=== PATIENT | female | born 1990 | race Caucasian/White ===

== ENCOUNTER 2022-01-15 19:39 | Observation (INO) | payer MEDICAID, SELFPAY ==
[2022-01-15 19:40] VITALS: BP 143/103; PULSE 112; RESP 18; TEMP 36.3; O2SAT 97; BMI 39.5
--- NOTE | 2022-01-15 19:54 | EX.ED.SAOD ---
HPI History of Present Illness Chief Complaint: Substance Abuse Narrative Narrative: This is a 31-year-old female presenting for alcohol detox. She states he drinks about 2 quarts a day of alcohol and then has multiple of the small bottles of fireball throughout the day. She states she last drank before she came in. She states she usually drinks all night till she gets 6 and goes up in the morning. She also states she uses meth but has not used this in about a week. She injects this. She denies other drug use. She states that her mother about 2 weeks ago and she wants to try to get clean. PFSH COUNTS INCLUDE 234 BEDS AT THE [facility] Home Medications NK 01/15/22 [History Last Taken Unknown] Allergy/AdvReac Type Severity Reaction Status Date / Time ketorolac [From Toradol] AdvReac Other Verified 01/15/22 19:40 Social History Smoking Status: Current every day smoker tobacco type: cigarettes ROS ROS ED Constitutional Constitutional ED: Denies chills or fever(s) Eyes Eyes: Denies blurry vision or change in vision ENT ENT ED: Denies rhinorrhea or sore throat Cardiovascular Cardiovascular: Denies chest pain or palpitations Respiratory/Chest Respiratory/Chest: Denies cough or dyspnea Gastrointestinal Gastrointestinal: Denies abdominal pain, constipation, diarrhea or melena Genitourinary Genitourinary ED: Denies dysuria Musculoskeletal Musculoskeletal: Denies arthralgias Integumentary Denies abscess Neurologic Neurologic: Denies headache(s) or paresthesias Psychiatric Psychiatric: Denies anxiety or depression EXAM Physical Exam Const Vital Signs: 01/15/22 19:40 Temperature 97.3 F L Temperature Source Temporal Pulse Rate 112 H Respiratory Rate 18 Blood Pressure 143/103 H Blood Pressure Mean 116 Pulse Ox 97 Oxygen Delivery Method Room Air Positive obese General Appearance ED: NAD; Negative for pallor Nutritional Appearance: obese HEENT Reports moist mucous membranes Eyes PERRL and EOMs intact bilaterally General Eye ED: Negative for pale conjunctiva or scleral icterus Resp normal respiratory effort and clear to auscultation bilaterally Auscultation: Negative for rales, rhonchi or wheezes Cardio regular rhythm Rate: tachycardic GI soft to palpation Neuro oriented x3 and CN's II-XII intact bilaterally Sensorium / Orientation: alert Speech: speech normal Psych mental status grossly normal Skin General Skin Exam: Negative for jaundice or pallor MDM MDM MDM Narrative Medical decision making narrative: Patient presenting for EtOH detox. She states she does do meth however she has not done this in a week. She understands it we do not detox from methamphetamine. Blood work is obtained and her CBC is unremarkable. CMP shows mild elevation in her AST, ALT, alkaline phosphatase. Bilirubin is normal. EtOH 215. hCG negative. Urine drug screen is negative. Patient is not have any withdrawal symptoms currently. She did not need to be medicated while in the ER. I spoke with hospitalist for admission. Impression: 1. EtOH abuse 2. Presentation for EtOH detox Lab Data Labs: Laboratory Results - last 24 hr 01/15/22 01/15/22 01/15/22 19:59 19:59 19:59 WBC 10.5 RBC 5.25 Hgb 14.2 Hct 43.4 MCV 82.7 MCH 27.0 MCHC 32.7 RDW Std Deviation 45.5 H RDW Coeff of Otis 15.1 H Plt Count 435 MPV 10.1 Immature Gran % (Auto) 0.300 Neut % (Auto) 49.3 Lymph % (Auto) 38.7 [place] % (Auto) 8.5 Eos % (Auto) 2.3 Baso % (Auto) 0.9 Absolute Neuts (auto) 5.2 Absolute Lymphs (auto) 4.05 Nucleated RBC % 0 Sodium 141 Potassium 3.7 Chloride 113 H Carbon Dioxide 20.0 L Anion Gap 8 BUN 8 Creatinine 0.95 Estim Creat Clear Calc 85.76 Est GFR (MDRD) Af Amer 88 Est GFR (MDRD) Non-Af 72 BUN/Creatinine Ratio 8.4 L Glucose 119 H Calcium 8.5 Total Bilirubin 0.20 AST 72 H ALT 64 H Alkaline Phosphatase 162 H Total Protein 7.5 Albumin 3.2 Globulin 4.3 H Albumin/Globulin Ratio 0.7 L Serum , Qual Urine Opiates Screen Urine Methadone Screen Ur Barbiturates Screen Ur Phencyclidine Scrn Ur Amphetamines Screen MDMA (Ecstasy) Screen U Benzodiazepines Scrn Urine Cocaine Screen U Cannabinoids Screen Ur Drug Screen Comment Ethyl Alcohol 215.0 01/15/22 01/15/22 19:59 19:59 WBC RBC Hgb Hct MCV MCH MCHC RDW Std Deviation RDW Coeff of Otis Plt Count MPV Immature Gran % (Auto) Neut % (Auto) Lymph % (Auto) [place] % (Auto) Eos % (Auto) Baso % (Auto) Absolute Neuts (auto) Absolute Lymphs (auto) Nucleated RBC % Sodium Potassium Chloride Carbon Dioxide Anion Gap BUN Creatinine Estim Creat Clear Calc Est GFR (MDRD) Af Amer Est GFR (MDRD) Non-Af BUN/Creatinine Ratio Glucose Calcium Total Bilirubin AST ALT Alkaline Phosphatase Total Protein Albumin Globulin Albumin/Globulin Ratio Serum , Qual NEGATIVE Urine Opiates Screen NEGATIVE Urine Methadone Screen NEGATIVE Ur Barbiturates Screen NEGATIVE Ur Phencyclidine Scrn NEGATIVE Ur Amphetamines Screen NEGATIVE MDMA (Ecstasy) Screen NEGATIVE U Benzodiazepines Scrn NEGATIVE Urine Cocaine Screen NEGATIVE U Cannabinoids Screen NEGATIVE Ur Drug Screen Comment Ethyl Alcohol Discharge Plan Triage Chief Complaint: Substance Abuse ED Provider: Ronni Aguayo Dx/Rx/DC Orders Prescriptions: No Action NK Referrals: NOT,DEFINED [NON-STAFF] -
[2022-01-15 20:07] LABS: Absolute Lymphocyte Count 4.05 X10^3/uL (0.83-4.51); Absolute Neutrophil Count 5.2 X10^3/uL (2.0-7.7); Basophil# 0.09 X10^3/uL; Basophil% 0.9 % (0-1); Eosinophil# 0.24 X10^3/uL; Eosinophils% 2.3 % (0-5); Hematocrit 43.4 % (37-47); Hemoglobin 14.2 g/dL (12.0-15.0); Lymphocyte # 4.05 X10^3/ul (0.83-4.51); Lymphocyte % 38.7 % (19-41); Mean Corp Hgb Conc 32.7 g/dL (32-36); Mean Corpuscular Volume 82.7 fL (81-99); Mean Platelet Vol. 10.1 fl (6.2-12.0); Monocyte# 0.89 X10^3/uL; Monocyte% 8.5 % (0-10); NRBC Flagged by Analyzer 0 % (0-5); Neutrophil # 5.17 X10^3/uL (2.7-7.7); Neutrophil % 49.3 % (47-70); Platelet Count 435 K/mm3 (150-450); RBC Distribution Width CV 15.1 % (11.6-14.6); RBC Distribution Width SD 45.5 fl (35.1-43.9); Red Blood Count 5.25 M/mm3 (4.2-5.4); White Blood Count 10.5 K/mm3 (4.4-11.0)
[2022-01-15 20:35] LABS: Internal QC Validated? YES +Cl - CLEAR BKGD; Pregnancy, Serum, hCG Quali. NEGATIVE Negative
[2022-01-15 20:59] LABS: Amphetamine Urine VISTA NEGATIVE (<1000 ng/mL); Barbiturate Urine VISTA NEGATIVE (< 200 ng/mL); Benzodiazepine Urine VISTA NEGATIVE (< 200 ng/mL); Cocaine Urine VISTA NEGATIVE (< 300 ng/mL); Ecstacy Urine VISTA NEGATIVE (< 500 ng/mL); Methadone Urine VISTA NEGATIVE (< 300 ng/mL); PCP Urine VISTA NEGATIVE (< 25 ng/mL); THC Urine VISTA NEGATIVE (< 50 ng/mL); Vista UDS pH Range 5
[2022-01-15 21:04] LABS: ALB/GLOB Ratio 0.7 RATIO (0.9-2.4); AST(SGOT) 72 U/L (15-37); Alanine Aminotransfer ALT/SGPT 64 U/L (13-56); Albumin, Serum 3.2 g/dL (3.2-5.0); Alkaline Phosphatase 162 U/L (45-117); Anion Gap 8 (5-15); BUN 8 mg/dL (7-18); BUN/Creat Ratio 8.4 RATIO (10-20); Calcium,Total 8.5 mg/dL (8.5-10.1); Chloride 113 mmol/L (98-107); Creatinine, Serum 0.95 mg/dL (0.55-1.02); EST Glomerular Filtration Rate 72 mL/min (>60); Est Glom Filt Rate - Afr Amer 88 mL/min (>60); Estimated Creatinine Clearance 85.76 ml/min; Globulin 4.3 g/dL (2.2-4.2); Glucose 119 mg/dL (74-106); Potassium 3.7 mmol/L (3.5-5.1); Protein, Total 7.5 g/dL (6.4-8.2); Sodium Level 141 mmol/L (136-145)
[2022-01-15 21:08] VITALS: BP 144/97; PULSE 115; RESP 17; TEMP 36.3; O2SAT 98
[2022-01-15 21:13] VITALS: BP 155/79; PULSE 69; RESP 15; O2SAT 99
--- NOTE | 2022-01-15 21:30 | PCM.HP.STD ---
HPI - General General Date of Admission: 01/15/22 Date of Service: 01/15/22 Chief Complaint: Requesting treatment for alcohol HPI Narrative Patient Desean MCKEON, is a 31 F who presents seeking treatment for alcohol withdrawal. Drink was around 2100 today. Patient typically drinks around 2 quarts of moonshine and 10 bottles of 100 mL of fireball daily. Occasionally uses methamphetamines but has not used it for about a week. Currently she is having no symptoms just feeling anxious. She is requesting treatment for alcohol withdrawal and presented to this program voluntarily. ON LICENSE OF [facility] Medical History (Updated 01/15/22 @ 21:[address] Suresh Johnston DO) First degree AV block Home Medications NK 01/15/22 [History Last Taken Unknown] Allergy/AdvReac Type Severity Reaction Status Date / Time ketorolac [From Toradol] AdvReac Other Verified 01/15/22 19:40 Social History (Updated 01/15/22 @ 21:[address] Suresh Johnston DO) Smoking Status: Light Smoker (<10/day) alcohol intake: current substance use type: methamphetamine ROS ROS Narrative All review of systems were negative except as mentioned above in the history of present illness and the other review of systems. Vital Signs Vital Signs Vital Signs: 01/15/22 19:40 01/15/22 21:08 01/15/22 21:13 Temperature 36.3 C L 36.3 C L Temperature Source Temporal Temporal Pulse Rate 112 H 115 H 69 Respiratory Rate 18 17 15 Blood Pressure 143/103 H 144/97 H 155/79 H Blood Pressure Mean 116 112 104 Pulse Ox 97 98 99 Oxygen Delivery Method Room Air Room Air Room Air Weight Weight: 117.934 kg Body Mass Index (BMI) 39.5 Physical Exam Const alert and no apparent distress HEENT normocephalic and head/scalp atraumatic Neck no lymphadenopathy Resp normal respiratory effort, no retractions, no use of accessory muscles and clear to auscultation bilaterally Cardio regular rate, regular rhythm, S1 normal heart sound, S2 normal heart sound and no murmurs GI normal to inspection, nondistended, normoactive bowel sounds, soft to palpation, non-tender and non-distended Extremity normal to inspection Psych Mood & Affect: anxious Results Lab / Micro Data Result Diagrams: 01/15/22 19:59 01/15/22 19:59 Labs: Laboratory Results - last 24 hr 01/15/22 19:59: WBC 10.5, RBC 5.25, Hgb 14.2, Hct 43.4, MCV 82.7, MCH 27.0, MCHC 32.7, RDW Std Deviation 45.5 H, RDW Coeff of Otis 15.1 H, Plt Count 435, MPV 10.1, Immature Gran % (Auto) 0.300, Neut % (Auto) 49.3, Lymph % (Auto) 38.7, [place] % (Auto) 8.5, Eos % (Auto) 2.3, Baso % (Auto) 0.9, Absolute Neuts (auto) 5.2, Absolute Lymphs (auto) 4.05, Nucleated RBC % 0 01/15/22 19:59: Sodium 141, Potassium 3.7, Chloride 113 H, Carbon Dioxide 20.0 L, Anion Gap 8, BUN 8, Creatinine 0.95, Estim Creat Clear Calc 85.76, Est GFR (MDRD) Af Amer 88, Est GFR (MDRD) Non-Af 72, BUN/Creatinine Ratio 8.4 L, Glucose 119 H, Calcium 8.5, Total Bilirubin 0.20, AST 72 H, ALT 64 H, Alkaline Phosphatase 162 H, Total Protein 7.5, Albumin 3.2, Globulin 4.3 H, Albumin/Globulin Ratio 0.7 L 01/15/22 19:59: Ethyl Alcohol 215.0 01/15/22 19:59: Urine Opiates Screen NEGATIVE, Urine Methadone Screen NEGATIVE, Ur Barbiturates Screen NEGATIVE, Ur Phencyclidine Scrn NEGATIVE, Ur Amphetamines Screen NEGATIVE, MDMA (Ecstasy) Screen NEGATIVE, U Benzodiazepines Scrn NEGATIVE, Urine Cocaine Screen NEGATIVE, U Cannabinoids Screen NEGATIVE, Ur Drug Screen Comment 01/15/22 19:59: Serum , Qual NEGATIVE Assessment & Plan Assessment/Plan (1) Alcohol withdrawal: PLAN: Uncomplicated Initiate phenobarbital taper. I did discuss with the patient the possibility that she could go through severe withdrawal given large quantities of alcohol she does consume. Thiamine and folate Addiction medicine to help facilitate outpatient program Anticipated length of stay is 2 to 4 days pending on her symptoms. PLAN: Plan First-degree AV block: Patient was diagnosed with that as a child and has not followed up with cardiology since then. I will check an EKG to ensure is no other process that is going on that may warrant evaluation. Tobacco abuse: Patient smokes less than half pack cigarettes per day. Nicotine patch Methamphetamine abuse: Patient uses sporadically. Has not used for several days. No treatment at this time. VTE prophylaxis: Not indicated as patient is low risk at this time. Encourage patient. COVID-19 vaccination status: Patient is not vaccinated for COVID-19 nor has she contracted COVID-19, that she is aware of. Encouraged her about getting vaccinated and that she could get vaccinated when she was here if she decides on that. CODE STATUS: Addressed with the patient. Patient was to be full code. Charges/Coding Visit Charges Inpatient E&M: 51774 Init Hosp L2
--- NOTE | 2022-01-15 22:08 | EKG12_ITS ---
Test Reason : HISTORY Blood Pressure : / mmHG Vent. Rate : 072 BPM Atrial Rate : 072 BPM P-R Int : 188 ms QRS Dur : 092 ms QT Int : 394 ms P-R-T Axes : 036 023 029 degrees QTc Int : 431 ms Normal sinus rhythm Normal ECG No previous ECGs available Confirmed by NATALI LAUREN, ISADORA ([id number]), scientific publications editor CONNOR GARZA ([id number]) on 01/17/2022 8:48:47 AM Referred By: WALLY Confirmed By:ISADORA HURST MD
[2022-01-15 22:10] VITALS: BMI 41.3
[2022-01-15 22:15] VITALS: BP 137/81; PULSE 95; RESP 16; TEMP 36.6; O2SAT 97
[2022-01-15] MEDS: Gabapentin 300 MG Capsule PO (23:05)
[2022-01-15] MEDS: Phenobarbital 32.4 MG Tablet 97.2 MG PO (23:05)
[2022-01-16 02:19] VITALS: BP 125/58; PULSE 96; RESP 18; TEMP 36.8; O2SAT 96
[2022-01-16] MEDS: Ondansetron 8 MG Tablet PO ×2 (02:27→10:21)
[2022-01-16] MEDS: Phenobarbital 32.4 MG Tablet 97.2 MG PO ×4 (02:27→15:03)
[2022-01-16 06:39] VITALS: BP 119/69; PULSE 82; RESP 18; TEMP 36.9; O2SAT 95
[2022-01-16 10:13] VITALS: BP 107/52; PULSE 91; RESP 18; TEMP 37.2; O2SAT 98
[2022-01-16] MEDS: hydrOXYzine PAM 25 MG Capsule 50 MG PO (10:21)
[2022-01-16] MEDS: Dicyclomine 10 MG Capsule 20 MG PO ×2 (10:21→16:18)
[2022-01-16] MEDS: Thiamine Hydrochloride 100 MG Tablet PO (10:22)
[2022-01-16] MEDS: Folic Acid 1 MG Tablet PO (10:22)
[2022-01-16] MEDS: Acetaminophen 500 MG Tablet PO (10:22)
--- NOTE | 2022-01-16 13:31 | CHAPLAIN ---
Type of Pastoral Visit _x__ Initial Visit ___ Follow-up Visit ___ On-call Visit ___ General Patient Visit ___ Spiritual Assessment ___ Family Conference ___ Bereavement ___ Rapid Response ___ Code Blue ___ Other (describe below) Pastoral Care Referral From _x__ Patient ___ Family ___ Nurse ___ Physician ___ Electronics Detail Draftsperson ___ Case Fitter ___ Other (describe below) Sacrament/Intervention _x__ Active listening ___ Anointing ___ Evangelical _x__ Bereavement ___ Communion ___ Masha exploration ___ ___ Life review _x__ Prayer ___ Reconciliation ___ Sacrament of Sick _x__ Supportive presence ___ Wedding ___ Other (describe below) Pastoral Comments patient had been sleeping but was awakened by her name; pt stated that she is fine since she has mostly been sleeping but admitted that she was experiencing grief over of her mother recently; offered support, listening ear, and prayer at pt request
--- NOTE | 2022-01-16 14:51 | DCINST_ITS ---
Discharge Instructions Diet Discharge Diet: No restrictions Activity Discharge Activity: Return to Normal Activity Weight Bearing Status: Full weight bearing Follow Up Care Test Results: Test results from this visit will be discussed in further detail at your follow- up appointment, if applicable. Discharge Plan Admission Admit Date/Time: 01/15/22 21:29 Primary Reason for Your Visit: alcohol detox Attending Provider: Nelson Granda Consulting Providers: Suresh Johnston Discharge Orders/Prescriptions Prescriptions: No Action NK Referrals / Follow Up: NOT,DEFINED [NON-STAFF] - Disposition Disposition (needs filled in before D/C Order can be placed): Inpatient Rehab Unit/Facility
--- NOTE | 2022-01-16 15:00 | ADDICTION ---
This film writer met with PT to conduct ASAM, MSE, AUDIT, DUDIT assessments and to plan for d/c. PT A+Ox4 and participated actively. All assessments completed and placed in PT's chart. PT plans to f/u with [facility] for residential treatment services.[facility] will provide transportation post d/c from [facility] today at 3:15pm.
[2022-01-16 15:01] VITALS: BP 126/94; PULSE 85; RESP 18; TEMP 37.3; O2SAT 97
--- NOTE | 2022-01-16 17:15 | PCM.DC.SUM ---
Providers Date of Admission: 01/15/22 Date of Discharge: 01/16/22 Reason For Visit: ALCOHOL WITHDRAWL Diagnosis Discharge Diagnosis (1) Alcohol withdrawal: Status: Acute Code(s): F10.239 - Alcohol dependence with withdrawal, unspecified Plan Final diagnosis: #1 acute alcohol withdrawal #2 chronic alcoholism #3 methamphetamine abuse #4 morbid obesity #5 alcohol intoxication Medications at Discharge Home Medications NK 01/15/22 Hospital Course Operations None Procedures None Summary of Care Provided Minutes Spent on Discharge: 31 Hospital Course: This 31-year-old white female was seen in the emergency room at [facility] requesting services for alcohol withdrawal. Patient admitted to occasional methamphetamine usage but denied any other illicit drug usage. Labs obtained revealed a normal CBC, CHEM panel was unremarkable, patient's tox screen was negative, patient's blood alcohol level was 215. Patient was admitted to [place] [id number], orders were entered using the alcohol detox order set, patient was seen in consultation by addiction protective services social worker. Patient agreed to be admitted to an outpatient detox unit after her discharge from the hospital. Her hospitalization was uneventful, there was no evidence of DTs during her admission. On 01/16/2022, patient was seen and examined: On examination she appeared in good health and spirits, she does not appear to be in any distress. Vital signs as documented. Skin warm and dry and without overt rashes. Neck without JVD, thyroid appears normal, trachea is midline, neck is supple. Lungs clear, normal air movement was noted. Heart exam notable for regular rhythm, normal sounds and absence of murmurs, rubs or gallops. Abdomen unremarkable and without evidence of organomegaly, masses, or abdominal aortic enlargement, bowel sounds are present in all 4 quadrants, no abdominal tenderness was noted. Extremities nonedematous, no cyanosis was noted, no clubbing was noted. Neuro: Cranial nerves II through XII are grossly intact, no focal motor deficits were noted, sensation to light touch and pinprick is intact, motor exam 5/5 throughout. Psych: Patient is alert and oriented x3, she does not appear anxious or depressed, she does not appear agitated. Patient was discharged to an outpatient detox facility on 01/16/2022 in stable condition. Weight / BMI Weight Weight: 123.3 kg Body Mass Index (BMI) 41.3 ABG / Lab / Microbiology Data Result Diagrams: 01/15/22 19:59 01/15/22 19:59 Laboratory: Laboratory Results - last 24 hr 01/15/22 19:59: WBC 10.5, RBC 5.25, Hgb 14.2, Hct 43.4, MCV 82.7, MCH 27.0, MCHC 32.7, RDW Std Deviation 45.5 H, RDW Coeff of Otis 15.1 H, Plt Count 435, MPV 10.1, Immature Gran % (Auto) 0.300, Neut % (Auto) 49.3, Lymph % (Auto) 38.7, [place] % (Auto) 8.5, Eos % (Auto) 2.3, Baso % (Auto) 0.9, Absolute Neuts (auto) 5.2, Absolute Lymphs (auto) 4.05, Nucleated RBC % 0 01/15/22 19:59: Sodium 141, Potassium 3.7, Chloride 113 H, Carbon Dioxide 20.0 L, Anion Gap 8, BUN 8, Creatinine 0.95, Estim Creat Clear Calc 85.76, Est GFR (MDRD) Af Amer 88, Est GFR (MDRD) Non-Af 72, BUN/Creatinine Ratio 8.4 L, Glucose 119 H, Calcium 8.5, Total Bilirubin 0.20, AST 72 H, ALT 64 H, Alkaline Phosphatase 162 H, Total Protein 7.5, Albumin 3.2, Globulin 4.3 H, Albumin/Globulin Ratio 0.7 L 01/15/22 19:59: Ethyl Alcohol 215.0 01/15/22 19:59: Urine Opiates Screen NEGATIVE, Urine Methadone Screen NEGATIVE, Ur Barbiturates Screen NEGATIVE, Ur Phencyclidine Scrn NEGATIVE, Ur Amphetamines Screen NEGATIVE, MDMA (Ecstasy) Screen NEGATIVE, U Benzodiazepines Scrn NEGATIVE, Urine Cocaine Screen NEGATIVE, U Cannabinoids Screen NEGATIVE, Ur Drug Screen Comment 01/15/22 19:59: Serum , Qual NEGATIVE D/C Instructions Discharge Diet: No restrictions Weight Bearing Status: Full weight bearing Meaningful Use Info Meaningful Use Diagnoses (Choose all that apply): None applicable Discharge Plan Admission Admit Date/Time: 01/15/22 21:29 Primary Reason for Your Visit: alcohol detox Attending Provider: Nelson Granda Consulting Providers: Suresh Johnston Discharge Orders/Prescriptions Prescriptions: No Action NK Referrals / Follow Up: NOT,DEFINED [NON-STAFF] - Disposition Disposition (needs filled in before D/C Order can be placed): Inpatient Rehab Unit/Facility Charges/Coding Visit Charges Inpatient E&M: 83060 Disch Hosp
== END 2022-01-16 17:00 | DRG 775 ==
LOC: ED 21:14 → MS3 21:23
PROVIDERS: Emergency Provider Student in an Organized Health Care Education/Training Program; Visit Provider Internal Medicine
DX: F10.239 Alcohol dependence with withdrawal, unspecified (principal); F15.10 Other stimulant abuse, uncomplicated; F10.229 Alcohol dependence with intoxication, unspecified; E66.01 Morbid (severe) obesity due to excess calories; Z68.41 Body mass index [BMI] 40.0-44.9, adult; F17.210 Nicotine dependence, cigarettes, uncomplicated; Y90.7 Blood alcohol level of 200-239 mg/100 ml; Z28.310 Unvaccinated for COVID-19
CPT/HCPCS: 80053; 80307; 82077; 84703; 85025; 93005; 99218; 99284; A4216; G0378

== ENCOUNTER 2023-11-15 01:14 | Inpatient (IN) | payer MEDICAID, SELFPAY ==
[2023-11-15] VITALS (7 sets, daily range): BP systolic 104–143; BP diastolic 63–102; PULSE 76–108; RESP 13–20; TEMP 36.4–36.8; O2SAT 93–99; BMI 31.1; BMI 30.4
[2023-11-15 01:58] LABS: Absolute Lymphocyte Count 3.49 X10^3/uL (0.83-4.51); Absolute Neutrophil Count 4.1 X10^3/uL (2.0-7.7); Basophil# 0.05 X10^3/uL; Basophil% 0.6 % (0-1); Eosinophil# 0.17 X10^3/uL; Eosinophils% 1.9 % (0-5); Hemoglobin 12.9 g/dL (12.0-15.0); Lymphocyte # 3.49 X10^3/ul (0.83-4.51); Mean Corp Hgb Conc 33.1 g/dL (32-36); Mean Corpuscular Hgb 28.4 pg (27.0-32.0); Mean Corpuscular Volume 85.9 fL (81-99); Mean Platelet Vol. 10.3 fl (6.2-12.0); Monocyte# 0.89 X10^3/uL; Monocyte% 10.2 % (0-10); NRBC Flagged by Analyzer 0 % (0-5); Neutrophil # 4.11 X10^3/uL (2.7-7.7); Neutrophil % 47.1 % (47-70); Platelet Count 306 K/mm3 (150-450); RBC Distribution Width CV 12.6 % (11.6-14.6); RBC Distribution Width SD 39.4 fl (35.1-43.9); Red Blood Count 4.54 M/mm3 (4.2-5.4); White Blood Count 8.7 K/mm3 (4.4-11.0)
[2023-11-15 02:02] LABS: Internal QC Validated? YES +Cl - CLEAR BKGD; Pregnancy, Urine Negative Negative
[2023-11-15 02:15] LABS: AST(SGOT) 17 U/L (15-37); Alanine Aminotransfer ALT/SGPT 18 U/L (13-56); Albumin, Serum 3.6 g/dL (3.2-5.0); Alkaline Phosphatase 84 U/L (45-117); Anion Gap 9 (5-15); BUN 18 mg/dL (7-18); BUN/Creat Ratio 21.1 RATIO (10-20); Bilirubin, Direct 0.08 mg/dL (0.00-0.30); Calcium,Total 8.5 mg/dL (8.5-10.1); Chloride 107 mmol/L (98-107); Creatinine, Serum 0.85 mg/dL (0.55-1.02); EST Glomerular Filtration Rate 81 mL/min (>60); Est Glom Filt Rate - Afr Amer 98 mL/min (>60); Estimated Creatinine Clearance 111.15 ml/min; Globulin 3.8 g/dL (2.2-4.2); Glucose 106 mg/dL (74-106); Potassium 3.1 mmol/L (3.5-5.1); Protein, Total 7.4 g/dL (6.4-8.2); Sodium Level 138 mmol/L (136-145)
--- NOTE | 2023-11-15 02:22 | EDS_ITS ---
HPI History of Present Illness Chief Complaint: Substance Abuse Informant: patient and friend Narrative Narrative: Patient is a 33-year-old female with past medical history of alcohol abuse methamphetamine abuse and hepatitis C. She states that she will drink alcohol every single day and will drink what ever she can get her hands on. She states her last drink was on the way into the hospital. She reports she has been through detox multiple times with the last time being roughly a year and a half ago. She denies any homicidal or suicidal ideation and states that her last methamphetamine use was 2 days ago. She states that she has been in alcohol withdrawal before but denies history of DTs. However with desire for detoxification and desire not to go through withdrawals she presents for evaluation [facility] Medical History Alcoholism Borderline personality disorder First degree AV block GERD (gastroesophageal reflux disease) Hepatitis C PTSD (post-traumatic stress disorder) Home Medications NK 01/15/22 [History Last Taken Unknown] Allergy/AdvReac Type Severity Reaction Status Date / Time meperidine [From Demerol] Allergy Mild Anger Verified 11/15/23 01:16 ketorolac [From Toradol] AdvReac Other Verified 11/15/23 01:16 Social History (Updated 01/15/22 @ 21:[address] Suresh Johnston DO) Smoking Status: Current every day smoker tobacco type: cigarettes and e- cigarettes alcohol intake: current substance use type: methamphetamine ROS ROS ED Constitutional Constitutional ED: Denies chills or fever(s) Eyes Eyes: Denies change in vision ENT ENT ED: Denies sore throat Cardiovascular Cardiovascular: Denies chest pain, palpitations or racing heartbeat Respiratory/Chest Respiratory/Chest: Denies cough or dyspnea Gastrointestinal Gastrointestinal: Denies abdominal pain, diarrhea, nausea or vomiting Genitourinary Genitourinary ED: Denies dysuria Musculoskeletal Musculoskeletal: Denies myalgias Integumentary Denies rash Neurologic Neurologic: Denies headache(s) Psychiatric Psychiatric: Denies suicidal ideation or suicidal thoughts Hematologic/Lymphatic Hematologic/Lymphatic: Denies easy bleeding or easy bruising EXAM Physical Exam Const Vital Signs: 11/15/23 01:15 Temperature 97.6 F L Temperature Source Temporal Pulse Rate 108 H Respiratory Rate 20 H Blood Pressure 143/102 H Blood Pressure Mean 115 Pulse Ox 97 Oxygen Delivery Method Room Air Positive well nourished and well developed General Appearance ED: well developed; Negative for pallor HEENT HEENT Narrative: Normocephalic atraumatic Eyes PERRL and EOMs intact bilaterally General Eye ED: Negative for scleral icterus Neck supple Resp normal respiratory effort and clear to auscultation bilaterally Cardio regular rate and regular rhythm GI normal to inspection, nondistended, normoactive bowel sounds, non-tender, non- distended and no masses Auscultation: normoactive bowel sounds Palpation: soft Extremity normal to inspection Extremity Narrative: No asymmetric edema no pitting edema negative Homans' sign bilaterally Neuro oriented x3, CN's II-XII intact bilaterally and no sensory deficits noted Sensorium / Orientation: alert Motor Exam: strength 5/5 throughout Psych mental status grossly normal Psych Narrative: No homicidal or suicidal ideation Skin no rashes or lesions noted General Skin Exam: Negative for jaundice or pallor MDM MDM MDM Narrative Medical decision making narrative: Patient presented to the ER hypertensive otherwise with stable vitals. She reported alcohol use daily and desire for detoxification with previous history of withdrawals. She stated she drank on her way to the hospital and her physical exam does not suggest withdrawal symptoms. Therefore I do not feel there is a need for Librium or phenobarbital at this time. However as the patient is requesting detoxification the case was discussed with medicine who does agree to admit the patient at this time to provide alcohol desiccation and prevent withdrawal symptoms/DTs. History & Record Review Discussion w/independent historian: Patient and Friend Lab Data Attestation: I reviewed the patient's lab results. Labs: Laboratory Results - last 24 hr 11/15/23 11/15/23 01:24 01:33 WBC 8.7 RBC 4.54 Hgb 12.9 Hct 39.0 MCV 85.9 MCH 28.4 MCHC 33.1 RDW Std Deviation 39.4 RDW Coeff of Otis 12.6 Plt Count 306 MPV 10.3 Immature Gran % (Auto) 0.200 Neut % (Auto) 47.1 Lymph % (Auto) 40.0 [place] % (Auto) 10.2 H Eos % (Auto) 1.9 Baso % (Auto) 0.6 Absolute Neuts (auto) 4.1 Absolute Lymphs (auto) 3.49 Nucleated RBC % 0 Sodium 138 Potassium 3.1 L Chloride 107 Carbon Dioxide 22.0 Anion Gap 9 BUN 18 Creatinine 0.85 Estim Creat Clear Calc 111.15 Est GFR (MDRD) Af Amer 98 Est GFR (MDRD) Non-Af 81 BUN/Creatinine Ratio 21.1 H Glucose 106 Calcium 8.5 Total Bilirubin 0.20 Direct Bilirubin 0.08 AST 17 ALT 18 Alkaline Phosphatase 84 Total Protein 7.4 Albumin 3.6 Globulin 3.8 Urine Test Negative Ur Drug Screen Comment Ethyl Alcohol 103.0 Management Discussion w/another healthcare provider: Hospitalist Discharge Plan Triage Chief Complaint: Substance Abuse ED Provider: Balaji Marquez Dx/Rx/DC Orders Clinical Impression: Desire for detoxification, Alcohol abuse, Methamphetamine abuse Prescriptions: No Action NK Primary Care Provider: Care Physician,No Primary Referrals: Care Physician,No Primary [Primary Care Provider] - Disposition Disposition: Acute Care Hospital [facility]
[2023-11-15 02:37] LABS: Amphetamine Urine VISTA POSITIVE (<1000 ng/mL); Barbiturate Urine VISTA NEGATIVE (< 200 ng/mL); Benzodiazepine Urine VISTA NEGATIVE (< 200 ng/mL); Cocaine Urine VISTA NEGATIVE (< 300 ng/mL); Ecstacy Urine VISTA NEGATIVE (< 500 ng/mL); Methadone Urine VISTA NEGATIVE (< 300 ng/mL); PCP Urine VISTA NEGATIVE (< 25 ng/mL); THC Urine VISTA NEGATIVE (< 50 ng/mL); Vista UDS pH Range 6
--- NOTE | 2023-11-15 04:01 | HP.PCM.HOS_ITS ---
HPI - General General Date of Admission: 11/15/23 HPI Narrative ROLANDO MCKEON, is a 33 F who presents to the hospital requesting detox from alcohol. Her last drink was on the way to the hospital blood alcohol level is 103 no signs of withdrawal at the moment. She was last in this institution 2021 for rehab, she underwent detox for about 1 day and then was placed in a detox/rehabilitation center in [place]. Most recently she has been sober for approximately 8 months prior to relapse. She drinks approximately 4 tall boys a day. [facility] Medical History Alcoholism Borderline personality disorder First degree AV block GERD (gastroesophageal reflux disease) Hepatitis C PTSD (post-traumatic stress disorder) Home Medications NK 01/15/22 [History Last Taken Unknown] Allergy/AdvReac Type Severity Reaction Status Date / Time meperidine [From Demerol] Allergy Mild Anger Verified 11/15/23 01:16 ketorolac [From Toradol] AdvReac Other Verified 11/15/23 01:16 Family History (Updated 11/15/23 @ 04:[address] Patrice Bal MD) Other Cancer Heart disease no surgical history Social History (Updated 01/15/22 @ 21:[address] Suresh Johnston DO) Smoking Status: Current every day smoker tobacco type: cigarettes and e- cigarettes alcohol intake: current substance use type: methamphetamine ROS Constitutional Constitutional: Denies chills, fatigue, fever(s) or malaise Eyes Eyes: Denies blurry vision ENT HEENT: Denies headache(s) or nasal discharge Cardiovascular Cardiovascular: Denies chest pain, dyspnea on exertion or syncope Respiratory/Chest Respiratory/Chest: Denies cough, shortness of breath at rest or shortness of breath with exertion Gastrointestinal Gastrointestinal: Denies constipation, diarrhea, nausea or vomiting Genitourinary Genitourinary: Denies dysuria Neurologic Neurologic: Denies focal weakness, numbness or tremor(s) Psychiatric Psychiatric: Denies anxiety or depression Vital Signs Vital Signs Vital Signs: 11/15/23 01:15 11/15/23 02:45 11/15/23 02:14 Temperature 97.6 F L 97.6 F L Temperature Source Temporal Pulse Rate 108 H 108 H Respiratory Rate 20 H 20 H Blood Pressure 143/102 H 143/102 H 143/102 H Blood Pressure Mean 115 115 115 Blood Pressure Source Blood Pressure Position Blood Pressure Location Pulse Ox 97 97 Oxygen Delivery Method Room Air 11/15/23 03:02 11/15/23 03:51 Temperature 98.2 F 97.8 F Temperature Source Temporal Oral Pulse Rate 86 82 Respiratory Rate 18 17 Blood Pressure 131/73 H 112/69 Blood Pressure Mean 92 83 Blood Pressure Source Monitor Blood Pressure Position Semi-Fowlers Blood Pressure Location Right Arm Pulse Ox 99 99 Oxygen Delivery Method Room Air Room Air Weight Weight: 200 lb 2.876 oz Body Mass Index (BMI) 30.4 Physical Exam Narrative General: Alert, Oriented x3, Cooperative, No apparent distress HEENT: Atraumatic, PERRLA, EOMI, Normocephalic Oral: Moist Mucosa Neck: Supple, No JVD Lungs: Clear to auscultation, Normal air movement, No rhonchi, No wheeze, No rales Cardiovascular: Regular rate, Regular Rhythm, Normal S1, Normal S2, No murmurs Abdomen: Soft, Non Tender, Non-Distended, No Hepato-splenomegaly Extremities: No edema, Capillary Refill Less than 3 Seconds Skin: No rashes, No breakdown Musculoskeletal: No Tenderness to Palpation of Joints or Extremities Neurological: No focal neurological deficits, Motor Exam 5/5 strength throughout, Sensory exam intact to light touch and pain Psych/Mental Status: Normal Affect, Appropriate Results Lab / Micro Data 11/15/23 01:24 11/15/23 01:24 Labs: Laboratory Results - last 24 hr 11/15/23 01:24: WBC 8.7, RBC 4.54, Hgb 12.9, Hct 39.0, MCV 85.9, MCH 28.4, MCHC 33.1, RDW Std Deviation 39.4, RDW Coeff of Otis 12.6, Plt Count 306, MPV 10.3, Immature Gran % (Auto) 0.200, Neut % (Auto) 47.1, Lymph % (Auto) 40.0, [place] % (Auto) 10.2 H, Eos % (Auto) 1.9, Baso % (Auto) 0.6, Absolute Neuts (auto) 4.1, Absolute Lymphs (auto) 3.49, Nucleated RBC % 0, Sodium 138, Potassium 3.1 L, Chloride 107, Carbon Dioxide 22.0, Anion Gap 9, BUN 18, Creatinine 0.85, Estim Creat Clear Calc 111.15, Est GFR (MDRD) Af Amer 98, Est GFR (MDRD) Non-Af 81, BUN/Creatinine Ratio 21.1 H, Glucose 106, Calcium 8.5, Total Bilirubin 0.20, Direct Bilirubin 0.08, AST 17, ALT 18, Alkaline Phosphatase 84, Total Protein 7.4, Albumin 3.6, Globulin 3.8, Ethyl Alcohol 103.0 11/15/23 01:33: Urine Test Negative, Urine Opiates Screen NEGATIVE, Urine Methadone Screen NEGATIVE, Ur Barbiturates Screen NEGATIVE, Ur Phencyclidine Scrn NEGATIVE, Ur Amphetamines Screen POSITIVE H, MDMA (Ecstasy) Screen NEGATIVE, U Benzodiazepines Scrn NEGATIVE, Urine Cocaine Screen NEGATIVE, U Cannabinoids Screen NEGATIVE, Ur Drug Screen Comment Assessment & Plan Assessment/Plan (1) Alcohol abuse: (2) Desire for detoxification: PLAN: Plan 1. Alcohol and methamphetamine abuse requesting detox/tobacco abuse ? Continue with the alcohol withdrawal protocol ? Will have her follow-up with 180 to develop discharge plan ? Discussed tobacco cessation can provide nicotine patch if necessary ? She states that she has never gone through seizures or hallucinations while going through withdrawal DVT: Ambulation Charges/Coding Visit Charges Inpatient E&M: 26716 Init Hosp L2
[2023-11-15] MEDS: Phenobarbital 32.4 MG Tablet 97.2 MG PO ×5 (04:06→21:27)
[2023-11-15] MEDS: Folic Acid 1 MG Tablet PO (07:42)
[2023-11-15] MEDS: Thiamine Hydrochloride 100 MG Tablet PO (07:42)
[2023-11-15] MEDS: Dicyclomine 10 MG Capsule 20 MG PO (11:57)
--- NOTE | 2023-11-15 12:02 | ADDICTION ---
This resume writer met with PT to conduct ASAM, MSE, AUDIT, DUDIT assessments and to plan for d/c. PT A+Ox4 and participated actively. All assessments completed and placed in PT's chart. PT plans to f/u with [facility] for residential treatment services. [facility] will provide transportation post d/c from [facility] if approved.
--- NOTE | 2023-11-15 15:39 | PCM.HOSP.N ---
Hospitalist Note Feeling unwell at this time. Open room. Nontoxic. Afebrile. Acute alcohol withdrawal: Continue with current management. Addiction medicine seen and tentative plan is for inpatient rehab.
[2023-11-15] MEDS: 0.9% Saline Lock 10 ML Syringe IV (21:27)
[2023-11-15] MEDS: Ondansetron 8 MG Tablet PO (21:37)
[2023-11-16 01:20] VITALS: BP 94/57; PULSE 60; RESP 16; TEMP 36.7; O2SAT 96
[2023-11-16] MEDS: Phenobarbital 32.4 MG Tablet 97.2 MG PO ×3 (01:22→07:58)
[2023-11-16 05:39] VITALS: BP 92/70; PULSE 64; RESP 18; TEMP 36.6; O2SAT 95
--- NOTE | 2023-11-16 07:22 | PN.HOSP_ITS ---
Reason for Visit Reason for Visit: Diagnoses Alcohol abuse, uncomplicated (11/15/23) Subjective Subjective Feeling better. Feels ready to go to rehab. Objective Data Objective Data Vital Signs: Vital Signs Temp Pulse Resp BP Pulse Ox O2 Del Method 36.6 C 64 18 92/70 95 Room Air 11/16/23 05:39 11/16/23 05:39 11/16/23 05:39 11/16/23 05:39 11/16/23 05:39 11/16/23 05:39 Oxygen Delivery Method Room Air Weight: 90.8 kg Body Mass Index (BMI) 30.4 Intake & Output: Intake and Output for Last 24 Hours 11/14/23 11/15/23 11/16/23 23:59 23:59 23:59 Intake Total 240 / 740 1000 / 1000 Balance 240 / 740 1000 / 1000 Lab / Micro Data 11/15/23 01:24 11/15/23 01:24 Physical Exam Const alert and no apparent distress Constitutional Narrative: lying in bed with covers up to her head. HEENT head/scalp atraumatic Resp normal respiratory effort Assessment & Plan Assessment/Plan (1) Alcohol abuse: (2) Desire for detoxification: PLAN: Plan Alcohol wthdrawal * on phenobarbital, thiamine and folate * addiction medicine following. * plan for [facility] residential treatment when ready for discharge DVT: Ambulation
[2023-11-16] MEDS: Thiamine Hydrochloride 100 MG Tablet PO (07:58)
[2023-11-16] MEDS: Folic Acid 1 MG Tablet PO (07:58)
[2023-11-16 08:00] VITALS: BP 102/57; PULSE 59; RESP 14; TEMP 36.9; O2SAT 97
--- NOTE | 2023-11-16 10:44 | PCM.DC.SUM ---
Providers Date of Admission: 11/15/23 Primary Care Physician: Reena Primary Care Phys Reason For Visit: ETOH Detox Diagnosis Discharge Diagnosis (1) Alcohol abuse: Status: Acute Code(s): F10.10 - Alcohol abuse, uncomplicated (2) Desire for detoxification: Status: Acute Plan Alcohol wthdrawal on phenobarbital, thiamine and folate addiction medicine following. plan for [facility] residential [facility] when ready for discharge DVT: Ambulation Medications at Discharge Home Medications multivitamin (Daily Multi-Vitamin tablet) 1 tab PO DAILY #30 tabs 11/16/23 Hospital Course Operations None Procedures None Summary of Care Provided Hospital Course: Patient presents with treatment for acute alcohol withdrawal. Patient was initiated phenobarbital. Patient's course was uncomplicated. Patient will go to [facility] residential program in stable condition. Weight / BMI Weight Weight: 90.8 kg Body Mass Index (BMI) 30.4 ABG / Lab / Microbiology Data 11/15/23 01:24 11/15/23 01:24 D/C Instructions Discharge Diet: No restrictions Meaningful Use Info Meaningful Use Meaningful Use Diagnoses (Choose all that apply): None applicable Ischemic Stroke Statin Dosing Therapy Reference: STATIN DOSE THERAPY REFERENCE: * Patients > 75 years receive moderate or high dose statin therapy. * Patients 75 years or YOUNGER should receive HIGH intensity statin dose unless contraindicated. You will be required to document reason for non-treatment if statin daily dose does not meet guidelines. HIGH DOSE STATIN THERAPY DAILY Atorvastatin > than or = to 40 mg Rosuvastatin > than or = to 20 mg Amlodipine + Atorvastatin > than or = to 2.5/40 mg Ezetimibe + Simvastatin 10/80 mg Simvastatin 80mg Discharge Plan Admission Admit Date/Time: 11/15/23 03:05 Primary Reason for Your Visit: Alcohol withdrawl Attending Provider: Suresh Johnston Primary Care Provider: Care Physician,No Primary Consulting Providers: Patrice Bal Discharge Orders/Prescriptions Prescriptions: New multivitamin [Daily Multi-Vitamin] Tablet 1 tab PO DAILY Qty: 30 0RF Referrals / Follow Up: Care Physician,No Primary [Primary Care Provider] - Disposition Disposition (needs filled in before D/C Order can be placed): Home, Self Care Charges/Coding Visit Charges Inpatient E&M: 12073 Disch Hosp
--- NOTE | 2023-11-16 10:56 | PHA.DC.MR.R ---
Pharmacy [place] Med Reconciliation Pharmacy Service has performed discharge medication reconciliation for this patient. The patient's discharge medication list was reviewed for discrepancies and discrepancies were resolved. Medications at Discharge Home Medications multivitamin (Daily Multi-Vitamin tablet) 1 tab PO DAILY #30 tabs 11/16/23
== END 2023-11-16 10:58 | disposition home or self-care (01) | DRG 775 ==
LOC: ED 02:26 → MS3 03:12
PROVIDERS: Admitting Provider Family Medicine; Emergency Provider Emergency Medicine
DX: F10.139 Alcohol abuse with withdrawal, unspecified (principal); F15.10 Other stimulant abuse, uncomplicated; F17.290 Nicotine dependence, other tobacco product, uncomplicated; F17.210 Nicotine dependence, cigarettes, uncomplicated; Y90.5 Blood alcohol level of 100-119 mg/100 ml
CPT/HCPCS: 80048; 80076; 80307; 80320; 81025; 85025; 99283; A4216; G0480

== ENCOUNTER → 2024-01-30 | Outpatient (CLI) | payer MEDICAID, SELFPAY ==
[2024-01-31 16:11] LABS: HIV - WCH Non-Reactive (Nonreactive); Hepatitis B Surface Antibody Reactive; Hepatitis B Surface Antigen Non-Reactive (Nonreactive)
[2024-02-02 19:06] LABS: HCV Quant. RNA PCR HCV Not Detected IU/mL (.); Hepatitis A AB, Total Positive (Negative)
== END | disposition home or self-care (01) ==
PROVIDERS: Referring Provider Family Medicine; Visit Provider Family Medicine
DX: B19.20 Unspecified viral hepatitis C without hepatic coma (principal)
CPT/HCPCS: 36415; 86703; 86706; 86708; 87340; 87522

== ENCOUNTER → 2024-03-27 | Outpatient (CLI) | payer MEDICAID, SELFPAY | END | disposition home or self-care (01) | PROVIDERS: Visit Provider Nurse Practitioner Family | DX: Z01.411 Encounter for gynecological examination (general) (routine) with abnormal findings (principal); Z11.3 Encounter for screening for infections with a predominantly sexual mode of transmission ==